=== PATIENT | female | born 2000 | race Caucasian/White ===

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

== ENCOUNTER 2020-06-02 16:20 | Emergency (ER) | payer OTHER, SELFPAY ==
[~2020-06-02] VITALS: Ht 152.4 cm; Wt 56.7 kg
[2020-06-02 17:06] VITALS: Ht 152.4 cm; Wt 56.7 kg
[2020-06-02 17:57] VITALS: BP 119/79
== END 2020-06-02 17:57 | disposition home or self-care (01) ==
LOC: ED 16:20
DX: U07.1 COVID-19 (principal); B34.9 Viral infection, unspecified
CPT/HCPCS: U0003-CS